=== PATIENT | male | born 1965 | race African-American/Black ===

== ENCOUNTER 2019-04-26 09:58 | Inpatient (IN) ==
[2019-04-26] MEDS ORDERED: PROMETHAZINE HCL 12.5 MG in SODIUM CHLORIDE 0.9% 50 ML IV PRN (11:24)
[2019-04-26] MEDS ORDERED: ONDANSETRON INJ 2 MG/ML 2 ML VIAL IV PRN (11:24)
[2019-04-26] MEDS ORDERED: ACETAMINOPHEN 325 MG TAB PO PRN (11:24)
[2019-04-26] MEDS ORDERED: LORazepam 1 MG TAB PO PRN (11:24)
--- NOTE | 2019-04-26 13:50 | Hospitalist Consultation ---
Date of Consultation April 26, 2019 Assessment & Plan (1) Pneumonia: -Admitted to [facility] from [facility] ED -CXR there showed left lower lobe pneumonia -Received Levaquin 500 mg, will give an additional 250 mg today and continue with 750 mg starting tomorrow -Saturating well on room air -WBC 13 K, vital signs stable, do not suspect sepsis -PRN nebs (2) History of back surgery: -Recent back surgery by Dr. Funk on 04/20 -CT lumbar spine obtained at [facility] shows postsurgical changes from posterior L4 and L5 lumbar laminectomy, hardware well-positioned. Severe bilateral L4-L5 and L5-S1 neural foraminal stenosis from osteophytes and disc bulging. Curvilinear densities in the posterior spinal canal at L2 and L3 which are causing severe spinal canal narrowing. -MRI ordered by Dr. Amador, management as per him -Started on Medrol Dosepak for pain control yesterday, will continue to complete course (3) Depression: (4) Anxiety: -Continue Seroquel (5) DVT prophylaxis: -Teds/SCDs as per spine orthopedics Thank you for this consultation. We will follow the patient with you during their hospital stay. You can reach a member of the [facility] Hospitalist Team 10/06 via pager @ [phone]. Supervising Physician Co-Signing Physician Notes Patient is a 53-year-old male with history of anxiety depression, tobacco use disorder, spinal stenosis and other problems presents with history of nonproductive cough, fever, diaphoresis since Saturday. Patient had back surgery [address] Funk. Patient was found to have left lower lobe pneumonia on outpatient imaging studies. Patient was started on Levaquin. His white count is elevated to 13 K, no signs of sepsis. Please review HPI for complete details of presentation. Physical Exam: Vitals signs as noted above General Appearance:Moderately built and nourished, no apparent distress Head: normocephalic, Atraumatic Eyes: normal inspection, EOMI Neck: supple, Trachea midline Respiratory/Chest: Coarse breath sounds anteriorly, CTA Cardiovascular: S1, S2, No murmur Abdomen/GI:Soft, Non tender, Bowel sounds present Extremities/Musculoskelatal:normal inspection, no edema Back: Surgical darryl noted--lower back Neurologic/Psych:AAOX3, grossly no focal neurological deficits Skin: normal color, warm Left Lower Lobe Pneumonia No sgns of sepsis Agree with Levaquin, IV fluids Nebs PRN Tobacco Use disorder: Student Assistant to quit smoking Nicotine patch I personally reviewed the record. Patient is interviewed and examined at bedside. Patient's care is coordinated with Shruthi Lynn REGULATORY COMPLIANCE SPECIALIST. Please refer to the documentation above for details of patient's presentation and for discussion of other issues. Dr.Pooja Patterson will continue patient care starting 04/27/19 History of Present Illness Reason for Consultation: Medical Management Requesting Physician: Dr. Amador Attending Physician: Eh Amador, DO History of Present Illness 53 year old male who was transferred from [place] ED for pneumonia. On 04/20 patient under back surgery with Dr. Funk at [facility] in [facility]. Patient was discharged on 04/21 he reports that evening he developed chills, fever, cough. Symptoms have been persistent and he was evaluated at [facility] ED today. Cough has been nonproductive. He reports persistent back pain from his recent surgery. He was started on a Medrol Dosepak yesterday for pain control. He denies chest pain or shortness of breath. No lightheadedness, dizziness, diaphoresis, syncopal events. He denies abdominal pain, nausea, vomiting, diarrhea. No urinary symptoms. At [facility], he was found to have a left lower lobe pneumonia. CT lumbar spine was also obtained showing postsurgical changes from posterior L4 and L5 lumbar laminectomy, hardware well-positioned. Severe bilateral L4-L5 and L5-S1 neural foraminal stenosis from osteophytes and disc bulging. Curvilinear densities in the posterior spinal canal at L2 and L3 which are causing severe spinal canal narrowing. [place] ED physician discussed with Dr. Amador who accepted the patient in transfer. Allergies Allergy/AdvReac Type Severity Reaction Status Date / Time Penicillins Allergy Severe SWELLING Verified 06/28/16 07:51 Home Medications Home Medications Medication Instructions Recorded Confirmed Type gabapentin 400 mg PO TID 04/26/19 04/26/19 History hydrocodone-acetaminophen 1 tab PO Q6H PRN 04/26/19 04/26/19 History methylprednisolone [Medrol (Jr)] 4 mg PO UD 04/26/19 04/26/19 History quetiapine [Seroquel] 25 mg PO DAILY 04/26/19 04/26/19 History tizanidine 4 mg PO Q8H PRN 04/26/19 04/26/19 History Patient History Medical History Depression (Chronic) Anxiety (Chronic) No pertinent past medical history (Chronic) H/O tooth extraction (Chronic) Surgical History History of back surgery (Chronic) H/O repair of right rotator cuff (Chronic) Family History Mother Lymphoma Social History Preferred Language: Zimbabwean Communication Ability: Effective 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 Required: No Beliefs That Will Affect Care: None Current Living Situation: Significant Other Other Information That Helps Us Care for You: No Feels Safe at Home: Yes Safety Concerns: Feels Safe At This Time Smoking Status: Heavy tobacco smoker Tobacco Type: cigarettes Do You Dip or Chew Tobacco: No Second Hand Exposure: No Tobacco Cessation Education Requested by Patient: No Hx Alcohol Use: No Hx Substance Use: Yes substance use type: marijuana Substance Use Type Other:: "1 Joint a day" Last Used Substance: Days (ago) Last Used Substance Other:: 04/25/19 Review of Systems Review of Systems: ROS per HPI, all other systems reviewed and negative Physical Exam Physical Exam: Please refer to Dr. Griffin's addendum for physical exam. Results & Data Laboratory Results Labs from [facility]: WBC 13 K H/H 11.7/34.0 Platelets 385 Na+ 135 K+ 3.8 BUN/creatinine 11/0.6 Glucose 153 Diagnostic Findings CXR from [facility]: Left lower lobe bronchopneumonia CT Lumbar Spine from [facility]: Postsurgical changes from posterior L4 and L5 lumbar laminectomy, hardware well- positioned. Severe bilateral L4-L5 and L5-S1 neural foraminal stenosis from osteophytes and disc bulging. Curvilinear densities in the posterior spinal canal at L2 and L3 which are causing severe spinal canal narrowing.
[2019-04-26] MEDS ORDERED: levoFLOXacin 250 MG TABLET PO ONE (14:00)
[2019-04-26] MEDS ORDERED: ALBUT/IPRATROP 3MG/0.5MG NEB 3 ML VIAL NEB PRN (14:00)
[2019-04-26] MEDS ORDERED: TIZANIDINE HCL 4 MG TABLET PO PRN (14:02)
[2019-04-26] MEDS ORDERED: METHYLPREDNISOLONE 4 MG PO SCH (14:15)
[2019-04-26] MEDS: LACTATED RINGER'S 1,000 ML IV SCH (14:27)
[2019-04-26 15:08] LABS: Est GFR (African American) 118.1; Est GFR (Non-African American) 101.9
[2019-04-26] MEDS: OXYCODONE/ACETAMINOPHEN 5mg/325mg TAB PO PRN ×3 (15:33→23:59)
[2019-04-26] MEDS: LORazepam 1 MG/2 ML VIAL IV PRN (16:32)
[2019-04-26] MEDS: METHYLPREDNISOLONE 4 MG PO SCH ×2 (18:54→23:28)
[2019-04-26] MEDS: DOCUSATE SODIUM 100 MG CAP PO SCH (21:53)
[2019-04-26] MEDS: GABAPENTIN 400 MG CAP PO SCH (21:54)
[2019-04-27] MEDS: LACTATED RINGER'S 1,000 ML IV SCH ×2 (03:11→17:20)
[2019-04-27] MEDS: LORazepam 1 MG/2 ML VIAL IV PRN ×2 (03:23→09:23)
[2019-04-27] MEDS: OXYCODONE/ACETAMINOPHEN 5mg/325mg TAB PO PRN ×5 (04:35→23:29)
[2019-04-27 06:26] LABS: Hematocrit (blood only) 33.3 % (42-52); Hemoglobin 11.8 g/dL (14.0-18.0); Mean Corpuscular Hgb Conc 35.4 g/dL (32-36); Mean Corpuscular Volume 81.8 fL (80-100); Platelet Count 420 K/uL (130-400); RDW Coefficient of Variation 14.9 % (11.5-14.5); RDW Standard Deviation 44.1 fL (36.4-46.3); Red Blood Count 4.07 M/uL (4.7-6.1)
[2019-04-27] MEDS: METHYLPREDNISOLONE 4 MG PO SCH ×3 (06:37→17:48)
[2019-04-27 06:55] LABS: BUN Creatinine Ratio 16.9 (10-20); Calcium 9.1 mg/dl (8.5-10.1); Creatinine Clr Calc Pharmacy 126.6 ml/min; Est GFR (African American) 121.1; Est GFR (Non-African American) 104.5; Potassium 4.4 mmol/L (3.5-5.1)
[2019-04-27] MEDS: GABAPENTIN 400 MG CAP PO SCH ×3 (08:39→21:00)
[2019-04-27] MEDS: QUETIAPINE FUMARATE 25 MG TABLET PO SCH (08:39)
[2019-04-27] MEDS: NICOTINE 21 MG/24 HR TDSY TD SCH ×2 (08:40→10:26)
[2019-04-27] MEDS: DOCUSATE SODIUM 100 MG CAP PO SCH ×2 (08:41→21:00)
--- NOTE | 2019-04-27 08:41 | Hospitalist Progress Note ---
Date of Service April 27, 2019 Assessment & Plan (1) Pneumonia: Transferred from [place] ED -CXR there showed left lower lobe pneumonia -Afebrile, Leucocytosis - 13k on admission. Leucocytosis has resolved. -Continue with Levofloxacin 750 mg daily- Day 2 -Nebs PRN (2) History of back surgery: -Recent back surgery by Dr. Funk on 04/20 -CT lumbar spine obtained at [facility] shows postsurgical changes from posterior L4 and L5 lumbar laminectomy, hardware well-positioned. Severe bilateral L4-L5 and L5-S1 neural foraminal stenosis from osteophytes and disc bulging. Curvilinear densities in the posterior spinal canal at L2 and L3 which are causing severe spinal canal narrowing. No MRI facility available at [place] hence transferred here -MRI ordered by Dr. Amador- Post op changes- L4-S1 spinal fusion. Large complex collection within post epidural space from L1 to L4. Severe mass effect and effaces thecal sac at L2, L3. D/D epidural Hematoma vs abscess. 1.9 cm fluid collection in post right psoas muscle. D/D small abscess vs hematoma. -Rest of the mx per primary team. Stable for procedure from medical point of view as pneumonia - clinically better with no fever, leucocytosis resolved (3) Depression: (4) Anxiety: -Continue Seroquel -Follows up with psychiatry outpatient (5) DVT prophylaxis: -Teds/SCDs as per spine orthopedics We will follow the patient with you during their hospital stay. You can reach a member of the [facility] Hospitalist Team 10/06 via pager @ [phone]. Subjective Patient is doing well. No sig back pain. Denies any worsening of cough, no sputum production. No chest pain, SOB, fever, chills Physical Exam Physical Exam: GENERAL- AAOX3, No acute distress LUNGS- Air entry decreased on left side. No wheezing HEART- Regular rate and rhythm. No murmurs ABDOMEN- Soft, non tender, non distended, Bowel sounds heard. EXTREMITIES- Good peripheral pulses, no edema BACK- Sutures + no tenderness Results & Data Vital Signs (Past 12 Hours) Vital Signs Temp Pulse Pulse Resp BP Pulse Ox 04/27/19 07:53 36.5 C 74 18 140/78 98 04/26/19 23:15 36.4 C L 74 16 133/87 98
[2019-04-27] MEDS ORDERED: GADOBUTROL 65ML VIAL IV PRN (10:04)
--- NOTE | 2019-04-27 10:38 | Magnetic Resonance Report ---
MRI LUMBAR SPINE COMBO CLINICAL HISTORY: Postoperative leg pain. COMPARISON STUDY: Lumbar spine CT dated 04/26/2019. TECHNIQUE: MRI of the lumbar spine is performed using various T1 and T2-weighted sequences in the axi al and sagittal planes. Contrast-enhanced sequences are acquired following the IV administration of 8 cc of Gadavist. The examination is modestly degraded by motion artifact. FINDINGS: Lumbar spine: Vertebral body height and alignment are maintained throughout the lumbar spine. There i s straightening of the lumbar lordosis. There are postoperative changes from laminectomy and posterio r fusion seen from L4 -S1. Interpedicular screws are present at all levels. Anterior osteophytes are seen throughout. The transverse processes are intact as visualized. Chronic degenerative endplate lucrecia nge is seen at L4-L5. Intervertebral discs: There has been discectomy at L5-S1. Disc desiccation is noted all levels. There is moderate loss of height at L3-L4 and L4-L5. Spinal cord and central canal: The partially imaged spinal cord is normal in morphology and signal in tensity. The conus medullaris terminates at the level of L1. There is a large complex fluid collectio n identified in the posterior epidural space extending from the mid body of L1 to the mid body of L4. This is best seen on sagittal image #9 and measures 11.4 x 2.1 x 1.9 cm a dimension. This causes sev ere mass effect and almost completely effaces the central canal. This collection demonstrates nonspec ific peripheral postcontrast enhancement. There is a smaller and simple appearing posterior fluid col lection seen at L5-S1. This measures 4 x 1.2 x 1.5 cm and mildly effaces the dorsal aspect of the the fauzia sac. Sacrum: The visualized sacrum is normal in morphology and signal intensity. Soft tissues: Postoperative change with soft tissue fluid/edema and nonspecific patchy abnormal enhan cement is identified throughout the paraspinous soft tissues of the operative levels. Skin clips are in place. There is a 1.9 cm fluid collection identified within the posterior aspect of the right psoa s, best seen on axial image #18. IMPRESSION: 1. There are postoperative changes from L4 -S1 spinal fusion. 2. There is a large complex collection identified within the posterior epidural space extending from L1 to L4 as detailed above. This causes severe mass effect and almost completely effaces the thecal s ac at L2 and L3. Differential considerations include epidural hematoma versus abscess and clinical co rrelation will be essential. 3. There is a more simple appearing fluid collection posteriorly at L5-S1. This causes mild mass effe ct on the thecal sac and may represent a seroma. 4. There is a 1.9 cm fluid collection identified within the posterior right psoas muscle. Again, diff erential considerations include a small abscess versus hematoma. 5. Postoperative change and edema are identified within the paraspinous soft tissues at the operative levels. Electronically signed by: Ernesto Campos M.D. 04/27/2019 10:37 AM
[2019-04-27] MEDS ORDERED: LEVOFLOXACIN/D5W 750 MG/150 ML BAG IV SCH (14:05)
--- NOTE | 2019-04-27 16:10 | History & Physical Report ---
Date of Service April 27, 2019 Assessment & Plan (1) History of back surgery: This time an MRI was obtained demonstrating evidence of epidural hematoma extending from L2-L5. There is significant compression of the thecal sac at these levels. However the patient this time is quite comfortable. He is not demonstrating any neurologic symptoms. We discussed his presentation we both agree continued observation is warranted. If he has any decline in status he may require an urgent decompression of the L2 334 levels. Clearly would like to avoid this if possible. Lastly he is being treated for his pneumonia and may be up to be discharged home with oral medicines in the next few days. Present on Admission?: Yes History of Present Illness Chief Complaint: Back and bilateral leg pain Primary Care Provider: Brent Zarate, DO This is a 53-year-old male who is status post lumbar decompression fusion L4-5 L5-S1. He had an uneventful operative course and was discharged home. By Saturday he had onset of significant bilateral leg pain described weakness. He had gone to the [place] ER. CAT scan was obtained demonstrating evidence of significant thecal sac compression at the L2-3 L3-4 levels as well as evidence of pneumonia. Subsequently transferred to [facility] for further treatment. At this time his back pain is controlled he no longer describes leg symptoms. He states his been able to stand and urinate without difficulty. Allergies Allergy/AdvReac Type Severity Reaction Status Date / Time Penicillins Allergy Severe SWELLING Verified 06/28/16 07:51 Home Medications Home Medications Medication Instructions Recorded Confirmed Type gabapentin 400 mg PO TID 04/26/19 04/26/19 History hydrocodone-acetaminophen 1 tab PO Q6H PRN 04/26/19 04/26/19 History methylprednisolone [Medrol (Jr)] 4 mg PO UD 04/26/19 04/26/19 History quetiapine [Seroquel] 25 mg PO DAILY 04/26/19 04/26/19 History tizanidine 4 mg PO Q8H PRN 04/26/19 04/26/19 History Past Med/Surg History Medical History Depression (Chronic) Anxiety (Chronic) No pertinent past medical history (Chronic) H/O tooth extraction (Chronic) Surgical History History of back surgery (Chronic) H/O repair of right rotator cuff (Chronic) Family History Mother Lymphoma Social History Preferred Language: Cymro Communication Ability: Effective Blueprint Trimmer Required: No Beliefs That Will Affect Care: None Current Living Situation: Significant Other Other Information That Helps Us Care for You: No Feels Safe at Home: Yes Safety Concerns: Feels Safe At This Time Smoking Status: Heavy tobacco smoker Tobacco Type: cigarettes Do You Dip or Chew Tobacco: No Second Hand Exposure: No Tobacco Cessation Education Requested by Patient: No Hx Alcohol Use: No Hx Substance Use: Yes substance use type: marijuana Substance Use Type Other:: "1 Joint a day" Last Used Substance: Days (ago) Last Used Substance Other:: 04/25/19 Physical Exam Physical Exam: On exam he appears comfortable. He has no tension signs straight leg raising. Sensory symmetric and intact to light touch and cold. He has a plus 5 out of 5 plantar flexion dorsiflexion quadricep. Incision is clean dry and intact there is some modest swelling but no drainage or erythema. Results & Data Vital Signs (Past 12 Hours) Vital Signs Temp Pulse Pulse Resp BP Pulse Ox 04/27/19 15:12 36.3 C L 89 18 123/80 97 04/27/19 07:53 36.5 C 74 18 140/78 98
[2019-04-27] MEDS ORDERED: KETOROLAC TROMETHAMINE 15 MG/ML VIAL IV ONE (20:19)
[2019-04-27] MEDS ORDERED: MoRPHine SULFATE 4 MG/ML 1 ML CARP\\VIAL IV PRN (20:24)
[2019-04-27] MEDS ORDERED: KETOROLAC TROMETHAMINE 15 MG/ML VIAL IV PRN (20:24)
--- NOTE | 2019-04-27 20:51 | Hospitalist Progress Note ---
Date of Service April 27, 2019 Subjective Outpatient steroid taper held after discussion with Dr. Amador given perceived lack of benefit for patient's worsening back pain symptoms attributed to postop spinal hematoma/possible abscess. Will relay to AM provider. Results & Data Vital Signs (Past 12 Hours) Vital Signs Temp Pulse Resp BP Pulse Ox 04/27/19 15:12 36.3 C L 89 18 123/80 97
[2019-04-27] MEDS: MoRPHine SULFATE 4 MG/ML 1 ML CARP\\VIAL IV PRN (20:55)
[2019-04-27] MEDS ORDERED: METHYLPREDNISOLONE 4 MG PO SCH (21:00)
[2019-04-28] MEDS: OXYCODONE/ACETAMINOPHEN 5mg/325mg TAB PO PRN ×3 (04:50→12:59)
[2019-04-28] MEDS: LACTATED RINGER'S 1,000 ML IV SCH (05:58)
[2019-04-28 06:31] LABS: Hematocrit (blood only) 33.4 % (42-52); Hemoglobin 11.3 g/dL (14.0-18.0); Mean Corpuscular Hgb Conc 33.8 g/dL (32-36); Mean Corpuscular Volume 82.5 fL (80-100); Mean Platelet Volume 9.6 fL (7.4-10.4); Platelet Count 450 K/uL (130-400); RDW Coefficient of Variation 14.7 % (11.5-14.5); RDW Standard Deviation 44.2 fL (36.4-46.3); Red Blood Count 4.05 M/uL (4.7-6.1); White Blood Count 9.63 K/uL (4.8-10.8)
[2019-04-28] MEDS ORDERED: METHYLPREDNISOLONE 4 MG PO SCH ×2 (07:00)
[2019-04-28 07:01] LABS: BUN Creatinine Ratio 14.4 (10-20); Calcium 8.7 mg/dl (8.5-10.1); Est GFR (African American) 118.1; Est GFR (Non-African American) 101.9; Potassium 3.6 mmol/L (3.5-5.1)
[2019-04-28] MEDS: MoRPHine SULFATE 4 MG/ML 1 ML CARP\\VIAL IV PRN (07:50)
[2019-04-28] MEDS: DOCUSATE SODIUM 100 MG CAP PO SCH (08:34)
[2019-04-28] MEDS: GABAPENTIN 400 MG CAP PO SCH ×2 (08:34→13:54)
[2019-04-28] MEDS: QUETIAPINE FUMARATE 25 MG TABLET PO SCH (08:35)
[2019-04-28] MEDS: NICOTINE 21 MG/24 HR TDSY TD SCH (08:35)
--- NOTE | 2019-04-28 11:25 | Hospitalist Progress Note ---
Date of Service April 28, 2019 Assessment & Plan (1) Pneumonia: Transferred from [place] ED -CXR there showed left lower lobe pneumonia -Afebrile, Leucocytosis - 13k on admission. Leucocytosis has resolved. -Continue with Levofloxacin 750 mg daily- Day 3 today -Nebs PRN (2) History of back surgery: -Recent back surgery by Dr. Funk on 04/20 -CT lumbar spine obtained at [facility] shows postsurgical changes from posterior L4 and L5 lumbar laminectomy, hardware well-positioned. Severe bilateral L4-L5 and L5-S1 neural foraminal stenosis from osteophytes and disc bulging. Curvilinear densities in the posterior spinal canal at L2 and L3 which are causing severe spinal canal narrowing. No MRI facility available at [place] hence transferred here -MRI ordered by Dr. Amador- Post op changes- L4-S1 spinal fusion. Large complex collection within post epidural space from L1 to L4. Severe mass effect and effaces thecal sac at L2, L3. D/D epidural Hematoma vs abscess. 1.9 cm fluid collection in post right psoas muscle. D/D small abscess vs hematoma. -Clinically unlikely to be abscess. No fever, leucocytosis. More pressure than true pain near suture site. On exam- No neurological deficit. -Defer further mx to primary team --> Likely plan is to discharge with follow up with Dr Ceballos tomorrow (3) Depression: (4) Anxiety: -Continue Seroquel -Follows up with psychiatry outpatient (5) DVT prophylaxis: -Teds/SCDs as per spine orthopedics Discussed with ortho- Plan to discharge today. Recommended completion of antibiotic course for pneumonia as above. Ok to discharge from medical point of view. We will follow the patient with you during their hospital stay. You can reach a [facility] via pager @ [phone]. Subjective Patient feels a little more pressure in his back. Not significant worsening of pain. No fever, chills, cough, nausea, vomiting. Physical Exam Physical Exam: GENERAL- AAOX3, No acute distress LUNGS- Air entry equal bilaterally HEART- Regular rate and rhythm. No murmurs ABDOMEN- Soft, non tender, non distended, Bowel sounds heard. EXTREMITIES- Good peripheral pulses, no edema BACK- Sutures + no erythema. Mild tenderness in the area surrounding the sutures. Results & Data Vital Signs (Past 12 Hours) Vital Signs Temp Pulse Resp BP BP Pulse Ox 04/28/19 08:05 162/79 H 04/28/19 07:00 36.6 C 79 16 154/106 H 97
--- NOTE | 2019-04-28 11:38 | Discharge Summary ---
Date of Service April 28, 2019 Admission HPI Per Admitting Provider This is a 53-year-old male who is status post lumbar decompression fusion L4-5 L5-S1. He had an uneventful operative course and was discharged home. By Saturday he had onset of significant bilateral leg pain described weakness. He had gone to the [facility]. CAT scan was obtained demonstrating evidence of significant thecal sac compression at the L2-3 L3-4 levels as well as evidence of pneumonia. Subsequently transferred to [facility] for further treatment. At this time his back pain is controlled he no longer describes leg symptoms. He states his been able to stand and urinate without difficulty. Principal Diagnosis Pneumonia status post lumbar decompression fusion Discharge Data Allergies Allergy/AdvReac Type Severity Reaction Status Date / Time Penicillins Allergy Severe SWELLING Verified 06/28/16 07:51 Consultations 04/26/19 11:24 Consult Internal Medicine Routine Ordered Studies 04/27/19 11:26 MR lumbar spine wo/w con Routine Hospital Course (1) History of back surgery: Patient was a transfer from [facility] with concerns regarding pneumonia and thoracic epidural hematoma. MRI obtained in our institution demonstrated evidence of hematoma noted throughout the lumbar spine. He opens however neurologically intact. He was ambulating well. Urinating without difficulty. Denies any numbness tingling in his legs. He was started on antibiotics. He remained afebrile. Pain controlled. Subsequently discharged home for follow-up in our office. Further details and orders can be found the chart for further review. Total Time Total Time Spent Total Time Spent (In Minutes): 20 minutes Discharge Plan Discharge Items Patient Disposition: Home - Self-Care Reason For Visit: LEFT LOWER LOBE PNEUMONIA,POST SURGICAL CHANGES Discharge Diagnosis: Left lower lobe pneumonia Discharge Goals: Improve function Activity: Per 'Additional Instructions' section Non-emergency contact: Primary Care Provider Call non-emergency contact if: you have any medication questions Follow-up/Referrals: Dov Funk [Surgeon] - (FOLLOW UP WITH DR. SANCHEZ NEXT WEEK) Brent Zarate DO [Primary Care Provider] - Diet: Regular Addtl Provider Instructions: ACTIVITY RECOMMENDATIONS: SELF CARE INSTRUCTIONS AFTER THORACIC/LUMBAR FUSIONS 1. You may walk to your tolerance. It is good exercise for your legs and back. Expect some back and intermittent leg aches and pains. 2. You may perform "counter-top" level activities (make a sandwich, rah with a project, etc.). 3. No bending or lifting of more than 10 pounds or back twisting of any nature (roll like a log when turning in bed). 4. You may ride in a car for 20-30 minutes at a time. No driving until after your first visit with your doctor. 5. Frequent changes of position and restricting sitting to 30 minutes at a time will help limit the amount of back spasms and stiffness you may experience. 6. You may discontinue the use of ambulatory aids (cane, crutches, etc.) once your strength and confidence allow. 7. You may musical instruments assembler the shower and let water strike your incision when you arrive home at least once daily. Do not take a tub bath, sit in a hot tub or go into a swimming pool until after your first recheck in the office. SPECIAL CARE INSTRUCTIONS: VERY IMPORTANT TO READ AND REVIEW A. Your surgical incision has been closed with a cosmetic suture under the skin that will dissolve in about 6 weeks. In 14 days, you can use a pair of clean scissors and cut the suture that is left outside of the skin at the ends of your incision. 1. The small skin tapes can be removed 7 days after surgery if they have not fallen off by that point. 2. You may keep the wound open to air as much as possible to promote healing after post-op day number 5 unless told otherwise by your doctor. 3. If you think the wound looks like it is becoming infected (redness or worsening drainage) and/or you are experiencing fever, chill or worsening back pain and muscle spasms, contact the office so that we may evaluate you as soon as possible. B. Complications are uncommon, but please contact us if you have any signs or symptoms of: 1. wound infection (fever higher than 102.5 degrees F, redness, separation of wound, drainage, or increasing pain from the incision) 2. blood clots in legs (pain, swelling, redness and warmth in legs) 3. urinary tract infection (fever higher than 102.5 degrees F, burning upon urination or increased frequency of urination) 4. nerve problems (inability to walk on your toes or heels, numbness, loss of bowel or bladder control) 5. any other symptoms that concern you C. Please call the office at if you have any concerns or questions about your operation or recovery. D. No smoking! Smoking drastically decreases the chance of a solid fusion. E. Do not take any anti-inflammatory medications (Indocin, Advil, Motrin, Aspirin, Naprosyn, etc.) as these may inhibit the chance of a solid fusion. Tylenol is okay to take for pain. MANAGING PAIN AFTER SPINAL SURGERY 1. Narcotic medication is intended for short-term use and will be provided for surgical pain. Surgical pain usually lasts for a period of 4-6 weeks. Narcotic medication includes Percocet, Vicodin, Darvocet, Tylenol #3 or Lortab. 2. Longer-term pain is more appropriately treated with non-narcotic medication such as Tylenol ES. 3. Muscle spasm is not appropriately treated with narcotics. Muscle relaxers such as Soma, Flexeril or Skelaxin can be used along with Tylenol ES. 4. Remember that we all live with some "aches and pains". This is not unusual or uncommon after an injury or as we get older. a. Back pain is expected and may include muscle spasms for 4 to 6 weeks after surgery. The pain should gradually improve. If the pain worsens for no apparent reason, please contact the office. b. Intermittent leg pain may also be experienced and should not be concerned about unless it worsens for no apparent reason. If so, please contact the office. 5. We will provide appropriate medication within the normal guidelines of their prescribed use. We will also be very cautious and aware of potential abuse and extended duration of patients' medication needs. a. Pain medications are for your comfort and to assist with sleep and rest so that the tissue can heal. They are not provided in order to return to normal activity and should not be used through the day. To do so or worsening pain at night can result from ongoing tissue damage and development of tolerance to the prescribed medicine. 6. Please allow 2-3 days to process refills. Prescriptions will not be mailed but must be picked up at the office. FOLLOW UP VISIT: Keep your scheduled follow-up appointment. Any questions, please call the office at . Prescriptions: New oxycodone-acetaminophen [Percocet] 5-325 mg Tablet 1 tab PO Q4H PRN (Reason: Pain) Qty: 30 RF: 0 levofloxacin 750 mg tablet 750 mg PO DAILY 5 Days Qty: 5 RF: 0 Continued quetiapine [Seroquel] 25 mg Tablet 25 mg PO DAILY RF: 0 tizanidine 4 mg tablet 4 mg PO Q8H PRN (Reason: Muscle Spasm) RF: 0 gabapentin 400 mg capsule 400 mg PO TID RF: 0 hydrocodone-acetaminophen 7.5-325 mg Tablet 1 tab PO Q6H PRN (Reason: Pain) RF: 0 Discontinued methylprednisolone [Medrol (Jr)] 4 mg Tablets,Dose Pack 4 mg PO UD RF: 0 Stand-Alone Forms: [facility] Discharge Orders: Discharge Order (Routine); Ordered 04/28/19 Ordered By: Eh Amador Admission Data Admit Date/Time: 04/26/19 13:35 Attending Provider: Eh Amador Admit Provider: Eh Amador Primary Care Provider: Brent Zarate V. Other Providers: Doron Tripp Service: Surgical Services
[2019-04-28] MEDS ORDERED: levoFLOXacin 750 MG TAB PO SCH (14:00)
[2019-04-29] MEDS ORDERED: METHYLPREDNISOLONE 4 MG PO SCH ×2 (07:00)
[2019-04-30] MEDS ORDERED: METHYLPREDNISOLONE 4 MG PO SCH ×2 (07:00)
[2019-05-01] MEDS ORDERED: METHYLPREDNISOLONE 4 MG PO SCH (07:00)
== END 2019-04-28 14:15 | disposition home or self-care (01) | DRG 195 ==
LOC: 3N 13:35